=== PATIENT | female | born 1970 | race Caucasian/White ===

== ENCOUNTER 2017-01-01 22:04 | Emergency (ER) | payer BC, MEDICAID ==
[2017-01-01 22:10] VITALS: BMI 30.6
[2017-01-01 22:15] VITALS: BP 138/86; PULSE 63; RESP 14; TEMP 98.9; O2SAT 100
--- NOTE | 2017-01-01 22:18 | ED PDOC ---
Arrival/HPI - General Chief Complaint: Abnormal Skin Integrity Time Seen by Provider: 01/01/17 22:16 Historian: Patient - History of Present Illness Narrative History of Present Illness (Text): 01/01/17 22:17 46 y/o female, pmh including htn/gastric bypass, nkda, c/o lt. hand laceration x 1 hour by the knife. Pt. stated that she was cutting the cabbage, accidentally cut the lt. hand thenar region, bleeding resolved, able to move the lt. hand and 1st digit thumb without difficulty, no loss of the sensation, no numbness or tingling, no night sweat, no dizziness, no other medical or psychological complaints. Past Medical History - Provider Review Nursing Documentation Reviewed: Yes - Infectious Disease Hx of Infectious Diseases: None - Cardiac Hx Cardiac Disorders: Yes Hx Hypertension: Yes Hx Pacemaker: No - Pulmonary Hx Respiratory Disorders: Yes Hx Sleep Apnea: Yes - Neurological Hx Neurological Disorder: No Hx Paralysis: No - HEENT Hx HEENT Disorder: No - Renal Hx Renal Disorder: No - Endocrine/Metabolic Hx Diabetes Mellitus Type 2: Yes - Hematological/Oncological Hx Blood Disorders: No Hx Blood Transfusions: No - Integumentary Hx Dermatological Disorder: No - Musculoskeletal/Rheumatological Hx Falls: No - Gastrointestinal Hx Gastrointestinal Disorders: No - Genitourinary/Gynecological Hx Genitourinary Disorders: No - Psychiatric Hx Psychophysiologic Disorder: No Hx Substance Use: No - Surgical History Hx Gastric Bypass Surgery: Yes (gastric sleeve) Other/Comment: gastric sleeve - Anesthesia Hx Anesthesia: Yes Hx Anesthesia Reactions: No Hx Malignant Hyperthermia: No - Suicidal Assessment Feels Threatened In Home Enviroment: No Family/Social History - Physician Review Nursing Documentation Reviewed: Yes Family/Social History: Unknown Family HX Smoking Status: Never Smoked Hx Alcohol Use: No Hx Substance Use: No Allergies/Home Meds Allergies/Adverse Reactions: Allergies No Known Allergies Allergy (Verified 01/01/17 22:10) Home Medications: Home Meds Medication Instructions Recorded Confirmed Amlodipine Besylate 10 mg PO DAILY 05/23/15 01/01/17 Review of Systems - Review of Systems Constitutional: absent: Fatigue, Fevers Eyes: absent: Vision Changes ENT: absent: Hearing Changes Respiratory: absent: Cough, Sputum Cardiovascular: absent: Chest Pain Gastrointestinal: absent: Abdominal Pain, Nausea, Vomiting Skin: Laceration. absent: Rash, Pruritis, Skin Lesions, Abscess, Ulcer, Cellulitis Physical Exam Vital Signs Reviewed: Yes Vital Signs Temp Pulse Resp BP Pulse Ox 01/01/17 22:14 98.9 F 63 14 138/86 100 Temperature: Afebrile Blood Pressure: Normal Pulse: Regular Respiratory Rate: Normal Appearance: Positive for: Well-Appearing, Non-Toxic, Comfortable Pain Distress: Mild Mental Status: Positive for: Alert and Oriented X 3 - Systems Exam Head: Present: Atraumatic, Normocephalic Pupils: Present: PERRL Nose (External): Present: Atraumatic. No: Abrasion, Contusion Nose (Internal): Present: Normal Inspection, No Active Bleeding. No: Rhinorrhea , Septal Hematoma, Epistaxis Neck: Present: Normal Range of Motion, Trachea Midline. No: MIDLINE TENDERNESS , Paraspinal Tenderness, Lymphadenopathy Respiratory/Chest: Present: Clear to Auscultation, Good Air Exchange. No: Respiratory Distress, Accessory Muscle Use Cardiovascular: Present: Regular Rate and Rhythm, Normal S1, S2 Abdomen: Present: Normal Bowel Sounds. No: Tenderness, Distention Upper Extremity: Present: Other (Lt. hand: thenar region visible approx. 3cm superficial laceration with no oozing/discharge, FROM without limitation, sensation intact, motor 5/5, +radial pulse, capillary refill< 2 seconds, neurovascular intact. ) Lower Extremity: Present: Normal Inspection, Normal ROM, Capillary Refill < 2 s. No: Deformity Neurological: Present: GCS=15, Speech Normal, Motor Func Grossly Intact, Gait Normal, Memory Normal Skin: Present: Warm, Dry, Normal Color Psychiatric: Present: Alert, Oriented x 3, Normal Insight, Normal Concentration Medical Decision Making ED Course and Treatment: 01/01/17 22:39 -keflex, tdap -wound irrigate and clean, will suture 01/01/17 23:08 -Urine hcg negative -Sensation intact, motor 5/5, wound irrigate with 1000cc of normal saline, clean with betadine, 1cc of plain 1% lidocaine injected locally with anesthetic obtained, 5-0 nylon made 5 sutures with good approximation, bacitracin and gauze dressing, sensation intact, motor 5/5, -Discharge home with keflex, bacitracin ointment, take tylenol or motrin for pain, keep the dressing dry and clean for 2 days then clean with soap and water twice daily, sutures need to be removed by day 11, follow up with your own pmd and hand specialist within 2 days, return to the ER for any new or worsening signs or symptoms. 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 Disposition/Present on Arrival - Present on Arrival Any Indicators Present on Arrival: No History of DVT/PE: No History of Uncontrolled Diabetes: Yes Urinary Catheter: No History of Decub. Ulcer: No History Surgical Site Infection Following: None - Disposition Have Diagnosis and Disposition been Completed?: Yes Diagnosis: Laceration of hand Disposition: HOME/ ROUTINE Disposition Time: 22:42 Patient Plan: Discharge Patient Problems: Current Active Problems Problem Status Diagnosed Laceration of hand Acute Condition: IMPROVED Discharge Instructions (ExitCare): Care For Your Stitches (ED), Laceration (ED) Print Language: [place] Additional Instructions: Discharge home with keflex, bacitracin ointment, take tylenol or motrin for pain , keep the dressing dry and clean for 2 days then clean with soap and water twice daily, sutures need to be removed by day 11, follow up with your own pmd and hand specialist within 2 days, return to the ER for any new or worsening signs or symptoms. Prescriptions: Bacitracin 1 appl TP BID #1 tube Cephalexin [Keflex] 500 mg PO QID #28 capsule Referrals: Leti Downs MD [Primary Care Provider] - Follow up with primary Jennie Bauer MD [Staff Provider] - Follow up with primary Forms: WORK NOTE
[2017-01-01] MEDS ORDERED: TDAP Vaccine 0.5 mL Syr IM ONE (22:36)
== END 2017-01-01 23:14 | disposition home or self-care (01) ==
LOC: ED 22:04
DX: S61.412A Laceration without foreign body of left hand, initial encounter (principal); W26.0XXA Contact with knife, initial encounter; I10 Essential (primary) hypertension; E11.9 Type 2 diabetes mellitus without complications; Z23 Encounter for immunization